=== PATIENT | female | born 1970 | race African-American/Black ===

== ENCOUNTER → 2024-01-11 | Outpatient (CLI) | payer BC, SELFPAY ==
[2024-01-11 12:26] LABS: Absolute Lymphocyte Count 1.63 X10^3/uL (0.83-4.51); Absolute Neutrophil Count 3.7 X10^3/uL (2.0-7.7); Basophil# 0.03 X10^3/uL; Basophil% 0.5 % (0-1); Eosinophil# 0.11 X10^3/uL; Eosinophils% 1.9 % (0-5); Hematocrit 40.6 % (37-47); Hemoglobin 12.7 g/dL (12.0-15.0); Lymphocyte # 1.63 X10^3/ul (0.83-4.51); Mean Corp Hgb Conc 31.3 g/dL (32-36); Mean Corpuscular Hgb 27.4 pg (27.0-32.0); Mean Corpuscular Volume 87.7 fL (81-99); Mean Platelet Vol. 10.8 fl (6.2-12.0); Monocyte# 0.31 X10^3/uL; Monocyte% 5.3 % (0-10); NRBC Flagged by Analyzer 0 % (0-5); Neutrophil # 3.73 X10^3/uL (2.7-7.7); Platelet Count 266 K/mm3 (150-450); RBC Distribution Width CV 14.5 % (11.6-14.6); RBC Distribution Width SD 46.5 fl (35.1-43.9); Red Blood Count 4.63 M/mm3 (4.2-5.4); White Blood Count 5.8 K/mm3 (4.4-11.0)
[2024-01-11 13:22] LABS: ALB/GLOB Ratio 0.9 RATIO (0.9-2.4); AST(SGOT) 17 U/L (15-37); Alanine Aminotransfer ALT/SGPT 28 U/L (13-56); Albumin, Serum 3.5 g/dL (3.2-5.0); Alkaline Phosphatase 116 U/L (45-117); Anion Gap 3 (5-15); BUN 13 mg/dL (7-18); BUN/Creat Ratio 15.9 RATIO (10-20); Calcium,Total 8.9 mg/dL (8.5-10.1); Chloride 108 mmol/L (98-107); Cholesterol 247 mg/dL (200); Creatinine, Serum 0.82 mg/dL (0.55-1.02); EST Glomerular Filtration Rate 77 mL/min (>60); Est Glom Filt Rate - Afr Amer 94 mL/min (>60); Glucose 87 mg/dL (74-106); High Density Lipoprotein 49 mg/dL; Potassium 3.7 mmol/L (3.5-5.1); Protein, Total 7.5 g/dL (6.4-8.2); Sodium Level 139 mmol/L (136-145); Thyroid Stim Hormone (TSH) 1.05 uIU/mL (0.358-3.74); Triglycerides 123 mg/dL; Very Low Density Lipoprotein 25 mg/dL (5-40)
[2024-01-11 13:30] LABS: Hemoglobin A1c 5.9 % (3.8-5.6)
== END | disposition home or self-care (01) ==
LOC: MTLAB 09:19
PROVIDERS: PCP Family Medicine; Referring Provider Family Medicine; Visit Provider Family Medicine
DX: Z00.00 Encounter for general adult medical examination without abnormal findings (principal); Z13.29 Encounter for screening for other suspected endocrine disorder; Z13.0 Encounter for screening for diseases of the blood and blood-forming organs and certain disorders involving the immune mechanism; Z13.1 Encounter for screening for diabetes mellitus; Z13.220 Encounter for screening for lipoid disorders
CPT/HCPCS: 36415; 80053; 80061; 83036; 84443; 85025

== ENCOUNTER 2024-11-20 08:08 | Day surgery (SDC) | payer BC, SELFPAY ==
[2024-11-20] VITALS (8 sets, daily range): BP systolic 93–126; BP diastolic 47–92; PULSE 66–99; RESP 16; TEMP 36.2–37.1; O2SAT 100; BMI 26.4
--- NOTE | 2024-11-20 08:57 | HP.PCM_ITS ---
HPI - General General Date of Service: 11/20/24 HPI Narrative RABIA TINSLEY, is a 54 F who presents for colonoscopy due to bright red blood per rectum. Patient denies any further bleeding or any other changes since office visit. Office visit 10/03/2024 [facility] HPI: 54-year-old female presents due to bright red blood per rectum. Patient states about a week and a half ago she had some bright red blood per rectum in the toilet patient denies her stool being hard at that time. Patient is not aware of any hemorrhoids that she has. Patient has never had a previous colonoscopy. Patient denies any family history of colon cancer. Patient does have bowel movements every 3 to 4 days. [facility] Medical History Wears glasses Non-smoker Blood in stool Hemorrhoids Constipation Home Medications ?Medication ?Instructions ?Recorded ?Last Taken ?Type sennosides 8.6 mg tablet (Senna 8.6 mg PO BID PRN constipation 10/03/24 Unknown History Laxative) sodium,potassium,mag sulfates 17.5 180 ml PO DAILY 2 doses #354 mL 10/03/24 Unknown Rx gram-3.13 gram-1.6 gram oral soln (Suprep Bowel Prep Kit) Allergy/AdvReac Type Severity Reaction Status Date / Time No Known Allergies Allergy Verified 11/20/24 08:21 Social History Smoking Status: Never smoker alcohol intake: never substance use type: does not use Past Medical/Surgical History Planned Operation Planned Operative Procedure(s): COLONOSCOPY Previous Hospitalizations/Surgeries HX Hospitalizations: No Any Problems With Anesthesia: No You/Your Family Experience Fever (Hyperthermia) With Anes: No Cholinesterase deficiency: No Cardiovascular Hx Hypertension: No Respiratory Hx Sleep Apnea: No Hx Respiratory Tract Infection/Cold (presently): No Do You Snore Loudly (louder than talking or can be heard): No Do You Often Feel Tired/ Fatigued/ Sleepy Dring Daytime?: No Has Anyone Observed You Stop Breathing During Sleep?: No Result (for STOP score): Negative Smoking Status: Never smoker Neurological Does patient have nerve stimulator: No Miscellaneous Recent Exposure to Contagious Disease: No Allergies No Known Allergies Allergy (Verified 11/20/24 08:21) Discharge After D/C, Where Do you Plan to Go: Return Home Vital Signs Vital Signs Vital Signs: 11/20/24 08:22 Temperature 97.1 F L Temperature Source Temporal Pulse Rate 99 Respiratory Rate 16 Blood Pressure 126/92 H Blood Pressure Mean 103 Blood Pressure Source Monitor Blood Pressure Position Sitting Blood Pressure Location Left Arm Pulse Ox 100 Oxygen Delivery Method Room Air Weight Weight: 169 lb Body Mass Index (BMI) 26.4 Physical Exam Const alert, oriented x3 and no apparent distress HEENT normocephalic and head/scalp atraumatic Resp normal respiratory effort Cardio regular rate GI soft to palpation and non-tender; Negative for non-distended Palpation: Negative for guarding Extremity no clubbing, cyanosis or edema Skin no rashes or lesions noted Neuro CN's II-XII intact bilaterally Psych mental status grossly normal Assessment & Plan Assessment/Plan (1) Blood in stool: Surgery Risks - Colonoscopy I discussed with the patient the risks of the procedure: Yes Risks Include but are not Limited To: Risks include but are not limited to: Bleeding, perforation requiring further surgery, inability to complete colonoscopy requiring barium enema.
--- NOTE | 2024-11-20 09:08 | PCM.PRE.AN2 ---
ASA Classification* ASA Classification ASA Classification: 2 Assessment & Plan Anesthesia* Anesthesia Assessment Anesthesia Assessment: Discussed sedation and/or anesthesia options, risks, benefits, and alternatives with patient/parents/legal guardian/POA. Questions invited. The patient/parents/legal guardian/POA seems to understand and agrees to proceed with anesthesia plan. Reviewed the physical assessment, medical history, allergy history and patient home medications list prior to surgery/procedure/anesthetic and documented any changes. Performed airway and anesthesia risk assessments. Anesthesia Type Anesthesia Type: MAC Anesthesia Focused Assessment* Temperature: 97.1 F Pulse Rate: 99 Blood Pressure: 126/92 Respiratory Rate: 16 Pulse Ox: 100 Airway Assessment Mouth opens: >3 cm Mallampati Score: II Focused Labs Anesthesia Preop lab: CBC WBC 5.8 K/mm3 (4.4-11.0) 01/11/24 09:22 RBC 4.63 M/mm3 (4.2-5.4) 01/11/24 09:22 Hgb 12.7 g/dL (12.0-15.0) 01/11/24 09:22 Hct 40.6 % (37-47) 01/11/24 09:22 Plt Count 266 K/mm3 (150-450) 01/11/24 09:22 CHEMISTRY Potassium 3.7 mmol/L (3.5-5.1) 01/11/24 09:22 Sodium 139 mmol/L (136-145) 01/11/24 09:22 BUN 13 mg/dL (7-18) 01/11/24 09:22 Creatinine 0.82 mg/dL (0.55-1.02) 01/11/24 09:22 Glucose 87 mg/dL (74-106) 01/11/24 09:22 TSH 1.05 uIU/mL (0.358-3.74) 01/11/24 09:22 COAG Pre-Assessment Diagnosis/Proposed Procedure Planned Operative Procedure(s): COLONOSCOPY Anesthesia History 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 When Was Last Pacemaker Check QUESTION #4 FULL TEXT: You/Your Family Experience fever (hyperthermia) with Anesthesia Last Oral Intake Last Oral intake: Last Oral Intake NPO since 05:00 11/20/24 08:22 Meds taken in AM with sips of water? 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 Female Yes 11/18/24 15:08 HX of Motion Sickness No 11/18/24 15:08 HX of N/V After Surgery No 11/18/24 15:08 Non-Smoker Yes 11/18/24 15:08 Duration of Surgery greater No 11/18/24 15:08 than 60 minutes Number of Risk Factors 2 11/18/24 15:08 PONV Score Moderate Risk 11/18/24 15:08 Height & Weight Height & Weight: Anesthesia: Height & Weight Height 5 ft 7 in 11/20/24 08:22 Weight: 76.657 kg 11/20/24 08:22 Body Mass Index (BMI) 26.4 11/20/24 08:22 Respiratory Assessment Respiratory Assessment - sheet roller operator: Respiratory Tract Infection Hx - sheet roller operator Hx Respiratory Tract Infection No 11/20/24 08:57 STOP Sleep Apnea STOP Sleep Apnea - sheet roller operator: STOP Sleep Apnea - sheet roller operator Hx Hypertension No 11/20/24 08:57 Hx Sleep Apnea No 11/20/24 08:57 CPAP BIPAP Do you snore loudly (louder No 11/20/24 08:57 than talking or can be heard Do you often feel tired/ No 11/20/24 08:57 fatigued/ sleepy during daytime? Has anyone observed you stop No 11/20/24 08:57 breathing during sleep? STOP Results Negative 11/20/24 08:57 QUESTION #5 FULL TEXT : Do you snore loudly (louder than talking or can be heard through closed doors)? 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 Specify any problems Hx of Preganancy in last 3 No 11/18/24 15:08 Months Nurse Filling Out Transfusion [email or web address] 11/18/24 15:08 & Questions: Date: 11/18/24 11/18/24 15:08 Time: 15:10 11/18/24 15:08 Patient unable to answer at this time (ie. 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: /Reproductive Hx- sheet roller operator Hx Now Gestational Age (in weeks): EDC: Hx Hx Para Hx Section SAB PFSH Medical History Wears glasses Non-smoker Blood in stool Hemorrhoids Constipation Home Medications ?Medication ?Instructions ?Recorded ?Last Taken ?Type sennosides 8.6 mg tablet (Senna 8.6 mg PO BID PRN constipation 10/03/24 Unknown History Laxative) sodium,potassium,mag sulfates 17.5 180 ml PO DAILY 2 doses #354 mL 10/03/24 Unknown Rx gram-3.13 gram-1.6 gram oral soln (Suprep Bowel Prep Kit) Allergy/AdvReac Type Severity Reaction Status Date / Time No Known Allergies Allergy Verified 11/20/24 08:21 Social History Smoking Status: Never smoker alcohol intake: never substance use type: does not use Review of Systems (Anesthesia) ROS Narrative System reviewed and no additional complaints, except as documented.
--- NOTE | 2024-11-20 10:02 | OP.CCLET_ITS ---
11/20/2024 Kiki Moran Md Re : Colonoscopy procedure for Joann Moran This procedure was performed on Wednesday, November 20, 2024. My impressions and recommendations are as follows: Impressions : - Hemorrhoids found on perianal exam. - Non-bleeding internal hemorrhoids. - The entire examined colon is normal. - No specimens collected. Recommendations : - Discharge patient to home. - Resume previous diet. - Continue present medications. - Repeat colonoscopy in 10 years for screening purposes. My findings are described in the full procedure note, which is enclosed. If I can be of further assistance, please feel free to contact me at Doctor phone number(s): , Work: . Sincerely, MD Lena Blood MD 11/20/2024 10:01:40 AM This report has been signed electronically.
--- NOTE | 2024-11-20 10:02 | OP.COLON_ITS ---
Patient Name: Joann Umanzor Procedure Date: 11/20/2024 9:37 AM Date of : 1970 Age: 54 Procedure: Colonoscopy Indications: Rectal bleeding Providers: Lena Vega MD Referring MD: Kiki Moran Md Medicines: Monitored Anesthesia Care Patient Profile: This is a 54 year old female. Last Colonoscopy: none. The patient's first colonoscopy is today. Complications: No immediate complications. Procedure: Pre-Anesthesia Assessment: - Prior to the procedure, a History and Physical was performed, and patient medications and allergies were reviewed. The patient's tolerance of previous anesthesia was also reviewed. The risks and benefits of the procedure and the sedation options and risks were discussed with the patient. All questions were answered, and informed consent was obtained. Prior Anticoagulants: The patient has taken no anticoagulant or antiplatelet agents. ASA Grade Assessment: Per anesthesia. After reviewing the risks and benefits, the patient was deemed in satisfactory condition to undergo the procedure. After I obtained informed consent, the scope was passed under direct vision. Throughout the procedure, the patient's blood pressure, pulse, and oxygen saturations were monitored continuously. The Colonoscope was introduced through the anus and advanced to the cecum, identified by the appendiceal orifice, ileocecal valve and palpation. The colonoscopy was performed without difficulty. The patient tolerated the procedure well. The quality of the bowel preparation was good. Scope In: 9:42:40 AM Scope Withdrawal Time 0 hours 10 minutes 6 seconds Scope Out: 9:56:48 AM Total Procedure Duration Time 0 hours 14 minutes 8 seconds Findings: Hemorrhoids were found on perianal exam. Non-bleeding internal hemorrhoids were found. The hemorrhoids were Grade I (internal hemorrhoids that do not prolapse). The entire examined colon appeared normal. Impression: - Hemorrhoids found on perianal exam. - Non-bleeding internal hemorrhoids. - The entire examined colon is normal. - No specimens collected. Recommendation: - Discharge patient to home. - Resume previous diet. - Continue present medications. - Repeat colonoscopy in 10 years for screening purposes. Procedure Code(s): --- Professional --- 20757, Colonoscopy, flexible; diagnostic, including collection of specimen(s) by brushing or washing, when performed (separate procedure) Diagnosis Code(s): --- Professional --- K64.0, First degree hemorrhoids K62.5, Hemorrhage of anus and rectum CPT copyright 2021 [employer]. All rights reserved. The codes documented in this report are preliminary and upon nuclear equipment sales engineer review may be revised to meet current compliance requirements. MD Lena Blood MD 11/20/2024 10:01:40 AM This report has been signed electronically. Number of Addenda: 0 Note Initiated On: 11/20/2024 9:37 AM
--- NOTE | 2024-11-20 10:05 | PCM.POST.ANE ---
Anesthesia: Postop Eval I Current Vital Signs Temperature: 97.1 F Pulse Rate: 72 Blood Pressure: 93/53 Respiratory Rate: 16 Pulse Ox: 100 Oxygen Delivery Method: Room Air Oxygen Flow Rate (L/min): 4 Assessment Airway patent: Yes Spontaneous unlabored respirations: Yes Mental status: Asleep nausea: No Vomiting: No Anesthesia Complication: No Fluid Hydration Crystalloid volume administer (ml): 40 Total IV fluid infused: 40 Progress Note Anesthesia document: Postop Eval 1 completed: Yes
--- NOTE | 2024-11-20 13:42 | PCM.POSTANE2 ---
Anesthesia Postop Eval I Sum Postop Eval Completion status Anesthesia document: Postop Eval 1 completed: Yes Anesthesia Postop Eval I Summary Anesthesia Postop Eval I Summary: Anesthesia Postop Eval I: Assessment Summary Airway patent Yes 11/20/24 10:06 [email or web address] Spontaneous unlabored Yes 11/20/24 10:06 [email or web address] respirations Mental status Asleep 11/20/24 10:06 [email or web address] nausea No 11/20/24 10:06 [email or web address] Vomiting No 11/20/24 10:06 [email or web address] Anesthesia Postop Eval I: Fluid Summary Crystalloid volume administer 40 11/20/24 10:06 [email or web address] (ml) Colloids volume administered ( ml) Blood Product volume administered (ml) Total IV fluid infused 40 11/20/24 10:06 [email or web address] Anesthesia Postop Eval I: Summary Notes Anesthesia Complication No 11/20/24 10:06 [email or web address] Anesthesia Complication Comment: Post-operative progress note Anesthesia: Postop Eval II Evaluation Mental status: Awake Pain Level: 0 nausea: No Vomiting: No
== END 2024-11-20 10:39 | disposition home or self-care (01) ==
LOC: EN 08:08 → AC 08:10
PROVIDERS: PCP Family Medicine; Referring Provider Family Medicine; Visit Provider Surgery
PROC: 0DJD8ZZ Inspection of Lower Intestinal Tract, Via Natural or Artificial Opening Endoscopic (ICD-10-PCS; CPT 45378; principal; 2024-11-20 09:25)
DX: K64.0 First degree hemorrhoids (principal); K62.5 Hemorrhage of anus and rectum
CPT/HCPCS: 45378; A4216; J2405